=== PATIENT | male | born 1960 | race Hispanic/Latino ===

== ENCOUNTER 2018-11-03 23:14 | Emergency (ER) | payer BC ==
[2018-11-04 00:23] LABS: RAPID GROUP A STREP NEGATIVE (NEGATIVE)
[2018-11-04] MEDS ORDERED: IPRATROPIUM/ALBUTEROL SULFATE 3 ML SOLUTION IH ONE (00:24)
== END 2018-11-04 01:47 | disposition home or self-care (01) ==
LOC: EDH 23:14
DX: J06.9 Acute upper respiratory infection, unspecified (principal); F41.9 Anxiety disorder, unspecified; F32.9 Major depressive disorder, single episode, unspecified
CPT/HCPCS: 71046; 87804; 87880; 93005; 94640